=== PATIENT | male | born 1955 ===

== ENCOUNTER 2020-06-20 13:04 | Emergency (ER) | payer MEDICARE ==
[~2020-06-20] VITALS: Ht 188 cm; Wt 97.7 kg
[2020-06-20 13:13] VITALS: TEMP 98.5
[2020-06-20 13:56] LABS: BASO # 0.1 (0.0-0.2); BASO % 0.9 % (0.0-2.0); EOS # 0.5 (0.0-0.7); EOS % 4.8 % (0-4.0); GRAN # 6.6 (1.4-6.5); GRAN % 70.3 % (42.2-75.2); HEMATOCRIT 43.8 % (42.0-52.0); HEMOGLOBIN 14.9 g/dl (13.5-18.0); LYMPH # 1.3 (1.2-3.4); LYMPH % 13.5 % (20.0-51.0); MEAN CELL VOLUME 97 fl (80.0-100.0); MEAN CORPUSCULAR HEMOGLOBIN 33 pg (27.0-31.0); MEAN CORPUSCULAR HGB CONC 34 g/dl (33.0-37.0); MEAN PLATELET VOLUME 11.1 fl (7.4-10.4); MONO # 0.9 (0.1-0.6); MONO % 9.6 % (1.7-9.3); PLATELET COUNT 222 K/mm3 (130-400); REDCELL DISTRIBUTION WIDTH-CV 12.6 % (11.5-14.5)
[2020-06-20 14:02] LABS: INR 1.1 (0.8-3.0); PROTHROMBIN TIME 12.2 SECONDS (9.7-12.8)
[2020-06-20 14:36] LABS: ALBUMIN 3.8 gm/dL (3.5-5.0); BILIRUBIN,TOTAL 0.9 mg/dL (0.0-1.0); CALCIUM 8.9 mg/dL (8.4-10.2); CREATININE, serum 0.91 (0.66-1.25); TOTAL PROTEIN 7.1 gm/dL (6.4-8.2)
[2020-06-20 14:44] LABS: COLLECTION METHOD CATHETER
[2020-06-20 14:47] LABS: TROPONIN-I 0.019 ng/mL (0.000-0.035)
[2020-06-20 14:51] LABS: MUCOUS Present /lpf; PH 5 (5-8); SQUAMOUS EPITHELIAL None Seen /hpf; URINE APPEARANCE Clear; URINE BACTERIA None Seen /hpf; URINE BILIRUBIN Negative (NEGATIVE); URINE BLOOD Negative (NEGATIVE); URINE COLOR Yellow; URINE GLUCOSE 3+ (NEGATIVE); URINE KETONE Negative (NEGATIVE); URINE LEUKOCYTE ESTERASE Negative (NEGATIVE); URINE NITRATE Negative (NEGATIVE); URINE PROTEIN(semi-quant) 1+ (NEGATIVE); URINE RBC 0-2 /hpf; URINE UROBILINOGEN Negative (NEGATIVE)
[2020-06-20 16:55] VITALS: BP 174/93; PULSE 71
--- NOTE | 2020-06-20 17:14 | NUR ---
Bell Maker received consult in ED for patient that was brought in for a non displaced knee fracture and weakness. Kala CHOE advised patient's daughter, Viji (ph#[phone]) had been in contact with the ED. BONNIE contacted Viji who advised patient was doing alright a few days ago before he had a fall, which has left him unable to get around. Viji advised she lives in [place] and patient lives in [place] with his . Viji reports patient was seen at the [place] [facility] yesterday but was discharged home. Viji advised patient's cannot care for him at home and she had to contact EMS today just to get patient up to the bathroom and into the car to go to the ED. Viji does not feel patient is safe to return home and was open to SW consulting IPR. BONNIE also advised Viji that without three inpatient midnights, patient would have to private pay for SNF. BONNIE collaborated with NORA Noland to order PT. BONNIE was contacted by Sravani GREEN who is recommending post acute rehab. BONNIE collaborated with Amanda, IPR Director who declined referral. BONNIE contacted both [facility] and [facility]. Both will not accept without three inpatient midnights. BONNIE faxed referral to [facility] as they have occasionally been able to waive the three midnight rule during the COVID pandemic. BONNIE was notified that patient to be transfered to [facility] to be admitted acute. Per ED notes, has been notified. BONNIE also followed up with Viji to notify her of transfer to [facility]. BONNIE notified Saumya at [facility] that a referral has been sent to [facility]. BONNIE also contacted Arlene at [facility] to advise that patient was being transferred to [facility].
== END 2020-06-20 16:57 | disposition short-term general hospital (02) ==
LOC: COL.ER 13:04
PROVIDERS: Physician Assistant
DX: S82.002A Unspecified fracture of left patella, initial encounter for closed fracture (principal); E11.9 Type 2 diabetes mellitus without complications; R41.82 Altered mental status, unspecified; I10 Essential (primary) hypertension; E78.5 Hyperlipidemia, unspecified; Z20.822 Contact with and (suspected) exposure to COVID-19; Z79.4 Long term (current) use of insulin; W18.30XA Fall on same level, unspecified, initial encounter; Y92.22 Religious institution as the place of occurrence of the external cause
CPT/HCPCS: J7030